=== PATIENT | male | born 1980 | race Caucasian/White ===

== ENCOUNTER 2020-07-05 19:38 | Emergency (ER) | payer OTHER, SELFPAY ==
[2020-07-05] VITALS (25 sets, daily range): BP systolic 130–179; BP diastolic 69–101; PULSE 55–77; RESP 12–22; TEMP 36.3; O2SAT 98
--- NOTE | 2020-07-05 19:30 | RT.EKG_ITS ---
APPROVED REPORT Exam: Resting ECG Patient Location: E HR:63 bpm ECG Measurements Heart Rate 63 AXIS LA 164 P 40 QRSd 99 QRS 38 QT 413 T 58 QTc 425 Conclusion Sinus rhythm...normal P axis, V-rate 60- 99. No STEMI. I have reviewed and interpreted ECG and agree with software generated interpretation.
--- NOTE | 2020-07-05 20:15 | DI.RAD_ITS ---
EXAM: XR CHEST 2V PA LATERAL CLINICAL HISTORY: CP. TECHNIQUE: 2D digital imaging was performed. COMPARISON: No exams were available for comparison FINDINGS: Heart size normal. The mediastinum is not widened. Lungs are clear. No infiltrates nor pleural eff usions IMPRESSION: No acute pulmonary findings. DATA REPOSITORY: RADIATION DOSE DELIVERED:
--- NOTE | 2020-07-05 20:17 | ED.GENADUL_ITS ---
Discharge Plan Disposition Patient Disposition: HOME Condition: Good Discharge Details Clinical Impression: Chest pain Primary Care Provider: None,None ED Provider: Jose Alberto Barreto [place] Meds and New Rx's Prescriptions: Continued omeprazole 20 mg capsule,delayed release(DR/EC) 20 mg PO DAILY RF: 0 Discharge Instructions Instructions: Chest Pain (ED) Additional Instructions: Your laboratory studies including 2 sets of troponin are completely normal. Sed rate and CRP also normal. Chest x-ray unremarkable. EKG x2 are normal. Risk stratification puts him at the low end for cardiac disease. However, recommendation is follow-up stress testing preferably in the next 72 hours. If you develop new or recurrent symptoms especially chest pain with associated symptoms you should return to the ED for reevaluation. Medical Decision Making Patient presents to the ED with 2-day history of subcostal left sided chest pain that has now developed left upper extremity tingling. He is neurologically intact and has normal sensation and strength in the left upper extremity. His EKG is normal. He is low risk for PE by revised [place] score. He PERCs out and does not require D-dimer. Assuming normal troponin he will be low risk by HEART score. No evidence of pericarditis on EKG. Chest x-ray pending. Clinically not consistent with Boerhaave syndrome or aortic dissection. Will try a nitro to see if it does anything. He did take 324 of aspirin at home. Patient laboratory studies are normal. CBC, CMP, sed rate, CRP and troponin are all normal. He does think the nitroglycerin maybe did help some. Chest x-ray normal. HEART score is a 2 making him low risk. Repeat EKG remains normal and unchanged. Repeat troponin remains negative. We had discussion regarding follow- up and have recommendations are for stress testing within 72 hours. Due to weekend as well as Covid restrictions but not likely to happen but stress te sting as soon as feasibly possible is recommended. Any recurrent or new symptoms should be reevaluated. Patient does not have primary care. 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 They do have cardiology there at least twice a week. He will speak with them directly to see if he can get outpatient stress testing sooner rather than later. Lab Data Lab results reviewed: Yes I reviewed the patient's lab results. ECG Data Attestation: I personally reviewed and interpreted this ECG (s) as follows: Interpretation: normal EKG; NSR at 63 with normal axis, intervals and ST segments [facility] General Mode of arrival: ambulatory . Date/Time Provider Initiated Documentation: 07/05/20 19:51 . Limitations to Documentation: no limitations . Information obtained by: patient and RN notes reviewed . HPI Narrative: Patient presents to ED with left arm tingling about 30 to 45 minutes prior to arrival. Patient reports left sided posterolateral chest pain described as achiness for the last couple of days. It is more or less constant. Occasionally has sharp stabbing pains in the chest as well. Was not necessarily overly concerned until he started having left arm symptoms today. He did have a little cough a week ago but tested negative for Covid and had no further symptoms. He does not have cough currently. He has no fever, sore throat, shortness of breath, loss of taste or smell, nausea/vomiting or diarrhea. There is no radiation of pain to the back or neck. There is no pain in the arm. He has no leg pain or leg swelling. He has no cardiac risk factors other than he states his father was under 55 and a first started having cardiac problems. Patient has no history of DVT or PE. For the most part he is very healthy only taking omeprazole for GERD. Related Data Home Medications Medication Instructions Recorded Confirmed omeprazole 20 mg capsule,delayed 20 mg PO DAILY 10/15/19 07/05/20 release Allergies Allergy/AdvReac Type Severity Reaction Status Date / Time No Known Allergies Allergy Verified 07/05/20 19:50 General Stated Complaint: Chest Pain LUÍS: 2 Review of Systems Narrative: As documented in HPI otherwise negative as below. Const: no fever, chills, weakness Resp: no cough, SOB, pleuritic pain CV: no diaphoresis, edema, syncope GI: no abdominal pain, nausea, vomiting, diarrhea Neuro: no headache, numbness, focal weakness, confusion [facility] Medical History Asthma Dislocation of right shoulder joint Surgical History History of mandibular surgery Social History Smoking/Tobacco Use Status: Never Smoking risk assessment performed?: Yes Alcohol Intake: current Alcohol Intake frequency: 3 or more drinks per day Alcohol type: beer and hard liquor Substance use type: does not use Do you feel safe at home: Yes Do you feel safe in your relationship?: Yes Exam Narrative Exam Narrative: Const: WDWN male in NAD. HEENT: NC/AT. Normal facial exam. Eyes: Normal conjunctiva and sclera. Neck: Supple. Trachea midline. Lungs: Normal respiratory effort. Lungs are clear. Cor: RRR without murmur/gallop. Good radial pulses. GI: Soft. NT/ND. No guarding or rebound. Neuro: A+O x 3. Normal speech, mentation, gait. Cranial nerves II - XII grossly intact. No gross motor or sensory deficit. Normal sensation in LUE. Ext: No C/C/E. No calf tenderness. Skin: Warm and dry without rash. Course Vital Signs Vital signs: Vital Signs Temperature 97.3 F L 07/05/20 19:45 Pulse 77 07/05/20 19:45 Respiratory Rate 18 07/05/20 19:45 Blood Pressure 179/101 H 07/05/20 19:45 Pulse Oximetry 98 07/05/20 19:45 Temperature 97.3 F L 07/05/20 19:45 Temperature Source Skin 07/05/20 19:45 Pulse 77 07/05/20 19:45 Respiratory Rate 18 07/05/20 19:45 Respiratory Effort Non-Labored 07/05/20 19:48 Blood Pressure 179/101 H 07/05/20 19:45 Blood Pressure Position Supine 07/05/20 19:45 Pulse Oximetry 98 07/05/20 19:45 Oxygen Delivery Method Room Air 07/05/20 19:45 Oxygen Flow Rate 0 07/05/20 19:45 Pain Level 5 07/05/20 19:45
[2020-07-05 20:52] LABS: Abs Immature Grans 0.02 10^3/uL (0.0-0.06); Absolute Basophil Count 0.03 10^3/uL (0.0-0.2); Absolute Eosinophil Count 0.08 10^3/uL (0.0-0.7); Absolute Monocyte Count 0.43 10^3/uL (0.1-0.8); Absolute Neutrophil Count 3.48 10^3/uL (1.2-6.7); Basophils % 0.5; Eosinophils % 1.3; HCT 42.2 % (40.0-50.0); HGB 13.8 g/dL (13.5-17.5); Immature Grans % 0.3; Lymphocytes % 33.1; MCH 29.8 pg (27.0-33.0); MCHC 32.7 % (32.0-36.0); MCV 91.1 fL (80-95); Monocytes % 7.1; Neutrophils % 57.7; Nucleated RBC 0 %; Platelet Count 284 10^3/uL (130-400); RBC 4.63 10^6/uL (4.36-5.78); RDW 11.8 % (11.8-14.1); RDW-SD 39.3 fL; WBC 6.04 10^3/uL (4.4-10.8)
[2020-07-05 21:09] LABS: C-Reactive Protein < 0.05 mg/dL (0.0-0.3)
--- NOTE | 2020-07-05 21:32 | DI.VRAD_ITS ---
PROCEDURE INFORMATION: Exam: XR Chest, 2 Views Exam date and time: 07/05/2020 9:22 PM Age: 40 years old Clinical indication: Left-sided chest pain; Patient HX: Chest and left arm pain TECHNIQUE: Imaging protocol: XR of the chest Views: 2 views. COMPARISON: No relevant prior studies available. FINDINGS: Lungs: Unremarkable. No consolidation. Pleural space: Unremarkable. No pleural effusion. No pneumothorax. Heart/Mediastinum: Unremarkable. No cardiomegaly. Bones/joints: Unremarkable. IMPRESSION: No acute findings. Dictated and Authenticated by: Jay Pham MD. Ordering:SWATI Abrams MD
[2020-07-05 21:34] LABS: ALT 37 U/L (16-63); AST 19 U/L (15-37); Alkaline Phosphatase 46 U/L (46-116); Anion Gap 7.7 mmol/L (3-11); BUN 11 mg/dL (7-18); Bilirubin, Total 0.2 mg/dL (0.2-1.0); CO2 29.3 mmol/L (21.0-32.0); CREATININE 1.09 mg/dL (0.70-1.30); Calcium 8.8 mg/dL (8.5-10.1); Chloride 104 mmol/L (98-107); Glucose 104 mg/dL (74-106); Magnesium 2.3 mg/dL (1.8-2.4); Potassium 3.8 mmol/L (3.5-5.1); Sodium 141 mmol/L (136-145); Total Protein 7.3 g/dL (6.4-8.2); Troponin I < 0.05 ng/mL (<0.06)
[2020-07-05 21:41] LABS: ESR 4 mm/hr (0-15)
[2020-07-05 21:55] LABS: Lipase 183 U/L (73-393)
--- NOTE | 2020-07-05 23:30 | RT.EKG_ITS ---
APPROVED REPORT Exam: Resting ECG Patient Location: E HR:60 bpm ECG Measurements Heart Rate 60 AXIS [place] 198 P 40 QRSd 96 QRS 34 QT 438 T 53 QTc 436 Conclusion Sinus rhythm...normal P axis, V-rate 60- 99 ST elev, probable normal early repol pattern...ST elevation, age<55 There are no significant changes compared to prior EKG performed on 07/05/2020 at 19:48. Normal Electrocardiogram No STEMI
[2020-07-06] VITALS: PULSE 58; RESP 16
[2020-07-06 00:01] VITALS: BP 127/70; PULSE 53; PULSE 60; RESP 15
[2020-07-06 00:10] VITALS: PULSE 55; RESP 19
[2020-07-06 00:11] LABS: Troponin I < 0.05 ng/mL (<0.06)
[2020-07-06 00:16] VITALS: BP 133/71; PULSE 54; PULSE 65; RESP 14
[2020-07-06 00:20] VITALS: PULSE 59; RESP 20
[2020-07-06 00:30] VITALS: BP 133/71; PULSE 54; RESP 20; TEMP 36.3; O2SAT 98
== END 2020-07-06 00:35 | disposition home or self-care (01) ==
PROVIDERS: Emergency Provider Emergency Medicine
DX: R07.89 Other chest pain (principal); R20.2 Paresthesia of skin
CPT/HCPCS: 36415; 80053; 83690; 85652; 93005; 99285; 71046; 83735; 84484; 85025; 86140; 93010; 99284